=== PATIENT | female | born 1990 | race Caucasian/White ===

== ENCOUNTER 2016-10-20 08:54 | Emergency (ER) | payer BC, OTHER ==
[~2016-10-20] VITALS: Ht 160 cm; Wt 100.0 kg
[~2016-10-20 08:54] MED LIST: PREN1TAB30 PO; ZOFR4TAB3 SL
[2016-10-20 08:58] VITALS: BP 133/91; PULSE 87; RESP 18; TEMP 98.3
[2016-10-20 09:02] VITALS: BP 133/91; PULSE 74; RESP 16; O2SAT 99
[2016-10-20] MEDS ORDERED: CYCL1TAB29 PO (09:06)
[2016-10-20] MEDS ORDERED: OXYC30TA PO (09:06)
[2016-10-20] MEDS ORDERED: SODIUM CHLOR 0.9% 1000 ML INJ 1,000 ML IV SCH (09:22)
[2016-10-20] MEDS ORDERED: SODIUM CHLORIDE 0.9% FLUSH 5 ML FLUSH IVF PRN (09:30)
[2016-10-20] MEDS ORDERED: KETOROLAC TROMETHAMINE 30 MG/ML (IVP) VIAL IV PUSH ONE (10:00)
[2016-10-20] MEDS ORDERED: MECLIZINE HCL 25 MG TAB PO ONE (10:00)
--- NOTE | 2016-10-20 10:23 | PD ---
HPI Chief Complaint: Dizziness Time Seen by Provider: 09:50 Travel History International Travel<30 days: No Contact w/Intl Traveler<30days: No Traveled to known affect area: No History of Present Illness HPI Patient is a 26-year-old female presents emergency Department with dizziness and vertiginous type symptoms since this morning. Patient initially declines any previous history of such. Ultimately does admit that she states that she had some vertigo in the past but does not report it felt like. Patient states that last night she was walking around and suddenly felt like the room was spinning and had trouble walking had to sit down. She states when she states still for some time he got better but after lying down and sitting up again it returned and her symptoms were fairly alarming to her so this morning she decided to call 911 and be seen in the emergency department. She denies any abdominal pain nausea or vomiting focal weakness. She does endorse a mild headache. Denies a possibility of as she's been celibate since she's had her 2-year-old son. PFSH Past Medical History Asthma: Yes Diminished Hearing: No Headaches: Yes Medical other: Yes (CHRONIC LOWER BACK PAIN) Musculoskeletal: Yes (CHRONIC BACK PAIN, L4-5, S1 BULGING DISC) Influenza Vaccination: No ?: Not LMP: 09/27/2016 : 1 Para: 0 Past Surgical History Section: Yes Social History Alcohol Use: No Tobacco Use: No Substance Use: No Allergies-Medications (Allergen,Severity, Reaction): Coded Allergies: Amoxicillin (Verified Allergy, Severe, HIVES, 10/20/16) Penicillin (Verified Allergy, Severe, HIVES, 10/20/16) Reported Meds & Prescriptions Reported Meds & Active Scripts Active Meclizine (Meclizine HCl) 25 Mg Tab 25 Mg PO TID PRN Reported Oxycodone (Oxycodone HCl) 30 Mg Tab 30 Mg PO Q6HR PRN Flexeril (Cyclobenzaprine HCl) 10 Mg Tab 10 Mg PO TID PRN Review of Systems Except as stated in HPI: all other systems reviewed are Neg Physical Exam Narrative GENERAL: WD/WN in nad. Playing with her son. SKIN: Warm and dry. HEAD: Atraumatic. Normocephalic. EYES: Pupils equal and round. No scleral icterus. No injection or drainage. ENT: No nasal bleeding or discharge. Mucous membranes pink and moist. NECK: Trachea midline. No JVD. CARDIOVASCULAR: Regular rate and rhythm. RESPIRATORY: No accessory muscle use. Clear to auscultation. Breath sounds equal bilaterally. GASTROINTESTINAL: Abdomen soft, non-tender, nondistended. Hepatic and splenic margins not palpable. MUSCULOSKELETAL: Extremities without clubbing, cyanosis, or edema. No obvious deformities. NEUROLOGICAL: Awake and alert. No obvious cranial nerve deficits. Motor grossly within normal limits. Five out of 5 muscle strength in the arms and legs. Normal speech. Cerebellar testing normal. PSYCHIATRIC: Appropriate mood and affect; insight and judgment normal. Data Data Last Documented VS Vital Signs Date Time Temp Pulse Resp B/P Pulse Ox O2 Delivery O2 Flow Rate FiO2 10/20/16 10:41 70 16 132/88 100 Room Air 10/20/16 08:58 98.3 Orders Basic Metabolic Panel (Bmp) (10/20/16 09:22) Comprehensive Metabolic Panel (10/20/16 09:22) Urinalysis - C+S If Indicated (10/20/16 09:22) Iv Access Insert/Monitor (10/20/16 09:22) Ecg Monitoring (10/20/16 09:22) Oximetry (10/20/16 09:22) Sodium Chlor 0.9% 1000 Ml Inj (Ns 1000 M (10/20/16 09:22) Sodium Chloride 0.9% Flush (Ns Flush) (10/20/16 09:30) Electrocardiogram (10/20/16 09:22) Ed Urine Pregnancytest Poc (10/20/16 09:22) Ketorolac Inj (Toradol Inj) (10/20/16 10:00) Meclizine (Antivert) (10/20/16 10:00) Cbc No Diff, Includes Plts (10/20/16 11:00) Labs Laboratory Tests Test 10/20/16 10/20/16 10:00 10:10 White Blood Count 8.0 TH/MM3 Red Blood Count 5.27 MIL/MM3 Hemoglobin 14.1 GM/DL Hematocrit 42.6 % Mean Corpuscular Volume 80.8 FL Mean Corpuscular Hemoglobin 26.8 PG Mean Corpuscular Hemoglobin 33.2 % Concent Red Cell Distribution Width 13.9 % Platelet Count 260 TH/MM3 Mean Platelet Volume 9.7 FL Sodium Level 139 MEQ/L Potassium Level 3.8 MEQ/L Chloride Level 108 MEQ/L Carbon Dioxide Level 25.0 MEQ/L Anion Gap 6 MEQ/L Blood Urea Nitrogen 9 MG/DL Creatinine 0.71 MG/DL Estimat Glomerular Filtration 98 ML/MIN Rate Random Glucose 87 MG/DL Calcium Level 8.6 MG/DL Total Bilirubin 0.3 MG/DL Aspartate Amino Transf 19 U/L (AST/SGOT) Alanine Aminotransferase 20 U/L (ALT/SGPT) Alkaline Phosphatase 72 U/L Total Protein 7.7 GM/DL Albumin 3.5 GM/DL Urine Color YELLOW Urine Turbidity HAZY Urine pH 7.0 Urine Specific [place] 1.016 Urine Protein NEG mg/dL Urine Glucose (UA) NEG mg/dL Urine Ketones TRACE mg/dL Urine Occult Blood NEG Urine Nitrite NEG Urine Bilirubin NEG Urine Urobilinogen LESS THAN 2.0 MG/DL Urine Leukocyte Esterase TRACE Urine RBC LESS THAN 1 /hpf Urine WBC 2 /hpf Urine Squamous Epithelial 5 /hpf Cells Urine Bacteria FEW /hpf Microscopic Urinalysis Comment CULT NOT INDICATED MDM Medical Decision Making Medical Screen Exam Complete: Yes Emergency Medical Condition: Yes Interpretation(s) EKG shows normal sinus rhythm and normal axis and a normal R-wave progression. No concerning ST-T changes. Intervals within normal limits. Possible left ventricular hypertrophy. This is borderline EKG. Differential Diagnosis Vertiginous migraine, BPPV, , anemia, Narrative Course Roomed in ER. Given toradol and meclizine. Symptoms resolved. History highly suggestive of BPPV. SHe is stable for discharge and appears quite well. DIscussed follow up with PCP. Diagnosis Primary Impression: Vertigo Med/Other Pt SpecificInfo: Prescription(s) given Scripts Meclizine 25 Mg Tab25 Mg PO TID PRN (VERTIGO) #30 TAB Ref 0 Prov:Jermain Gee MD 10/20/16 Disposition: 01 DISCHARGE HOME Condition: Stable Jermain Gee MD Oct 20, 2016 10:23
[2016-10-20 10:31] LABS: BACTERIA, URINE FEW /hpf; BLOOD, URINE NEG (NEG); GLUCOSE,URINE NEG (NEG); KETONE, URINE TRACE mg/dL (NEG); NITRITE,URINE NEG (NEG); SQUAMOUS EPITHELIAL CELL URINE 5 /hpf (0-5); URINE COLOR YELLOW (YELLW/STRAW)
[2016-10-20 10:33] LABS: COMMENT (UR) CULT NOT INDICATED; CULTURE IF INDICATED CULT NOT INDICATED
[2016-10-20 10:41] VITALS: BP 132/88; PULSE 70; RESP 16; O2SAT 100
[2016-10-20 10:47] LABS: ALT (GPT) 20 U/L (10-53); ANION GAP 6 MEQ/L (5-15); AST (GOT) 19 U/L (15-37); BLOOD UREA NITROGEN 9 MG/DL (7-18); CHLORIDE 108 MEQ/L (98-107); GLOMERULAR FILTRATION RATE 98 ML/MIN (>89); POTASSIUM 3.8 MEQ/L (3.5-5.1); SODIUM (NA) 139 MEQ/L (136-145)
[2016-10-20 11:00] LABS: ALKALINE PHOSPHATASE 72 U/L (45-117); TOTAL BILIRUBIN ADULT 0.3 MG/DL (0.2-1.0)
[2016-10-20 11:12] LABS: HEMATOCRIT 42.6 % (35.0-46.0); MEAN CELL VOLUME 80.8 FL (80.0-100.0); MEAN CORPUSCULAR HEMOGLOBIN 26.8 PG (27.0-34.0); MEAN CORPUSCULAR HGB CONC 33.2 % (32.0-36.0); PLATELET COUNT 260 TH/MM3 (150-450); RED BLOOD COUNT 5.27 MIL/MM3 (4.00-5.30); RED CELL DISTRIBUTION WIDTH 13.9 % (11.6-17.2); REVIEW FLAG FINAL
[2016-10-20] MEDS ORDERED: MECL-62 PO (11:29)
--- NOTE | 2016-10-20 23:09 | EKG ---
Date Performed: 10/20/2016 Time Performed: 09:54:50 PTAGE: 26 years EKG: Sinus rhythm MODERATE VOLTAGE CRITERIA FOR LVH, CONSIDER NORMAL VARIANT BORDERLINE ECG Compared to the PREVIOUS TRACING from 08/21/10, no significant change. DOCTOR: Venkatesh Del Castillo Interpretating Date/Time 10/20/2016 23:08:05
== END 2016-10-20 11:51 | disposition home or self-care (01) ==
LOC: NEPA 08:54
DX: R42 Dizziness and giddiness (principal); R51 Headache; J45.909 Unspecified asthma, uncomplicated; G89.29 Other chronic pain; M54.5 Low back pain; R94.31 Abnormal electrocardiogram [ECG] [EKG]
CPT/HCPCS: 80053; 81001; 84703; 85027; 93005; 96374; 99284; J1885; J7030

== ENCOUNTER 2017-09-29 18:38 | Emergency (ER) | payer OTHER ==
[~2017-09-29] VITALS: Ht 160 cm; Wt 106.4 kg
[~2017-09-29 18:38] MED LIST changes: +CYCL10TA PO; +MECL-62 PO; +OXYC30TA PO; -PREN1TAB30 PO; -ZOFR4TAB3 SL
[2017-09-29 18:41] VITALS: BP 148/94; PULSE 76; RESP 16; TEMP 97.5; O2SAT 100
[2017-09-29] MEDS ORDERED: CHLO25TA2 PO (19:00)
[2017-09-29] MEDS ORDERED: TRAM50TA PO (19:00)
[2017-09-29] MEDS ORDERED: ATENOLOL/CHLORTHALIDONE 50/25 TAB PO ONE (19:00)
[2017-09-29] MEDS ORDERED: ACETAMINOPHEN/HYDROcodone 325 MG/5 MG TAB PO ONE (19:00)
[2017-09-29] MEDS ORDERED: GABA300C5 PO (19:17)
[2017-09-29] MEDS ORDERED: CHLORTHALIDONE 50 MG TAB PO ONE (19:30)
[2017-09-29] MEDS ORDERED: ATENOLOL 50 MG TAB PO ONE (19:30)
--- NOTE | 2017-09-29 19:30 | PD ---
HPI Chief Complaint: Headache Time Seen by Provider: 18:48 Travel History International Travel<30 days: No Contact w/Intl Traveler<30days: No Traveled to known affect area: No History of Present Illness HPI The patient was seen and examined in the presence of the nurse. This patient complains of elevated blood pressure and headaches. These are both chronic problems for her. She does go to pain management. Blood pressure currently 160 /104. She has a primary care physician appointment in 2 days. She wants to get on blood pressure medications. She says her blood pressures are always elevated in the 150-160 range. Severity is moderate. No alleviating factors. No thunderclap onset or headache. No head injury or fever. She has a frontal throbbing PFSH Past Medical History Hx Anticoagulant Therapy: No Asthma: Yes Diabetes: No Diminished Hearing: No Headaches: Yes Musculoskeletal: Yes (CHRONIC BACK PAIN, L4-5, S1 BULGING DISC) ?: Not : 1 Para: 0 Past Surgical History Section: Yes Social History Alcohol Use: No Tobacco Use: No Substance Use: No Allergies-Medications (Allergen,Severity, Reaction): Coded Allergies: amoxicillin (Unverified Allergy, Severe, HIVES, 09/29/17) penicillin G (Unverified Allergy, Severe, HIVES, 09/29/17) Reported Meds & Prescriptions Reported Meds & Active Scripts Active Tramadol (Tramadol HCl) 50 Mg Tab 50 Mg PO Q6H PRN Chlorthalidone 25 Mg Tab 12.5 Mg PO DAILY Meclizine (Meclizine HCl) 25 Mg Tab 25 Mg PO TID PRN Reported Oxycodone (Oxycodone HCl) 30 Mg Tab 30 Mg PO Q6HR PRN Flexeril (Cyclobenzaprine HCl) 10 Mg Tab 10 Mg PO TID PRN Review of Systems General / Constitutional: No: Fever HENT: Positive: Headaches Cardiovascular: No: Chest Pain or Discomfort Respiratory: No: Cough Gastrointestinal: Positive: Nausea Physical Exam Narrative GENERAL: Well-nourished, well-developed patient in no apparent distress. SKIN: Focused skin assessment reveals no rash and nodules. Skin is Warm and dry. HEAD: Atraumatic. Normocephalic. EYES: Pupils equal and round. No scleral icterus. No injection or drainage. ENT: No nasal bleeding or discharge. Mucous membranes pink and moist. NECK: Trachea midline. No JVD. CARDIOVASCULAR: Regular rate and rhythm. No murmur appreciated. RESPIRATORY: No accessory muscle use. Clear to auscultation. Breath sounds equal bilaterally. GASTROINTESTINAL: Abdomen soft, non-tender, nondistended. Hepatic and splenic margins not palpable. MUSCULOSKELETAL: No obvious deformities. No clubbing. No cyanosis. No edema. NEUROLOGICAL: Awake and alert. No obvious cranial nerve deficits. Motor grossly within normal limits. Normal speech. PSYCHIATRIC: Appropriate mood and affect; insight and judgment normal. Data Data Last Documented VS Vital Signs Date Time Temp Pulse Resp B/P (MAP) Pulse Ox O2 Delivery O2 Flow Rate FiO2 09/29/17 18:41 97.5 76 16 148/94 (112) 100 Orders Orders Atenolol-Chlorthalid 50-25 Mg (Tenoretic (09/29/17 19:00) Acetamin-Hydrocod 325-5 Mg ([place] 5-325 (09/29/17 19:00) MDM Medical Decision Making Medical Screen Exam Complete: Yes Emergency Medical Condition: Yes Medical Record Reviewed: Yes Differential Diagnosis Differential diagnosis includes migraine, tension headache, cluster headache, meningitis. Narrative Course I have reviewed the patient's electronic medical record. Patient is neurologically intact. Presentation not consistent with subarachnoid hemorrhage. I don't see indication for emergent imaging. Gave her a pain pill and a blood pressure pill to start at her request I wrote her for some chlorthalidone to start and she is going to check and record her BP and follow-up with her physician in 2 days She has for some in for pain and then later venture that she sees pain management so I don't think she should take that in addition to her usual meds Diagnosis Primary Impression: Headache Qualified Codes: R51 - Headache Additional Impression: Elevated blood pressure reading Additional Instructions: The patient was advised to follow up with their physician and return if they worsen. Check and record blood pressure daily Med/Other Pt SpecificInfo: Prescription(s) given Scripts Tramadol (Tramadol) 50 Mg Tab 50 MG PO Q6H Y for PAIN, #12 TAB 0 Refills Prov: Zach Dumont MD 09/29/17 Chlorthalidone (Chlorthalidone) 25 Mg Tab 12.5 MG PO DAILY, #20 TAB 0 Refills Prov: Zach Dumont MD 09/29/17 Disposition: 01 DISCHARGE HOME Condition: Stable Zach Dumont MD Sep 29, 2017 19:30
[2017-09-29 19:57] VITALS: BP 115/80; PULSE 74; RESP 18; O2SAT 97
[2017-10-06] MEDS ORDERED: XANA1TAB2 PO (13:32)
[2017-10-06] MEDS ORDERED: ALBUAER3 INH (13:53)
[2017-10-06] MEDS ORDERED: COLA100C5 PO (14:26)
== END 2017-09-29 20:08 | disposition home or self-care (01) ==
LOC: PHED 18:38
DX: R51 Headache (principal); R03.0 Elevated blood-pressure reading, without diagnosis of hypertension; G89.29 Other chronic pain; M54.9 Dorsalgia, unspecified
CPT/HCPCS: 99284